=== PATIENT | male | born 1980 | race Caucasian/White ===

== ENCOUNTER 2023-09-10 15:40 | Emergency (ER) | payer OTHER ==
[2023-09-10 16:06] VITALS: TEMP 98.4
[2023-09-10] MEDS ORDERED: KETOROLAC 15 MG/ML 1 ML VIAL IM STA (16:56)
[2023-09-10] MEDS ORDERED: CYCLOBENZAPRINE 10 MG TAB PO STA (16:56)
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
[2023-09-10 19:27] VITALS: BP 119/72; PULSE 59; RESP 18
[2023-09-10 19:35] LABS: Appearance,Urine Clear (Clear); Bilirubin,Urine Negative (Negative); Blood,Urine Negative (Negative); Color,Urine Light Yellow; Glucose,Urine (UA) Negative (Negative); Ketones,Urine Negative (Negative); Leukocyte Esterase,Urine Negative (Negative); Nitrite,Urine Negative (Negative); Protein,Urine Negative (Negative); Specific Gravity,Urine 1.015 (1.001-1.035); Urobilinogen,Urine <2.0 mg/dL (<2.0)
== END 2023-09-10 19:15 | disposition home or self-care (01) ==
LOC: EC 15:40
DX: M54.9 Dorsalgia, unspecified (principal); F12.90 Cannabis use, unspecified, uncomplicated; F17.200 Nicotine dependence, unspecified, uncomplicated; V29.99XA Rider (driver) (passenger) of other motorcycle injured in unspecified traffic accident, initial encounter; Y92.410 Unspecified street and highway as the place of occurrence of the external cause
CPT/HCPCS: 51798; 81003; 72125; 70450; 71250; 74176; 99284; 96372; J1885